=== PATIENT | male | born 1995 | race Hispanic/Latino ===

== ENCOUNTER 2025-03-10 01:14 | Emergency (ER) | payer OTHER ==
[~2025-03-10] VITALS: Ht 175.3 cm; Wt 80.7 kg
[2025-03-10 01:15] VITALS: BP 123/82
[2025-03-10 01:22] VITALS: PULSE 82; RESP 16; TEMP 97.6; O2SAT 97
[2025-03-10] MEDS ORDERED: POLYOS OP (01:22)
--- NOTE | 2025-03-10 01:23 | ERN ---
General Chief Complaint: Eye Problems Stated Complaint: EYE INFECTION Time Seen by MD: 01:15 History of Present Illness Initial Comments Otherwise healthy 30-year-old male who presents for left eye redness beginning earlier tonight. He reports itching and pain in the left eye with redness. No contact lenses. No other symptoms. Allergies: Coded Allergies: No Known Drug Allergies (Unverified Allergy, Unknown, 03/10/25) Past Medical History Past Medical History: No Pertinent History Past Surgical History: None Surgical History Other: RIGHT HAND SURGRY REPAIR FOR BOXERS FX ROS Dictation CONSTITUTIONAL: No chills, no fever, no weakness, no diaphoresis, no malaise. HEAD/FACE: No signs of trauma. EENT: Left eye irritation and redness RESPIRATORY: No cough, no orthopnea, no SOB, no stridor, no wheezing. CARDIOVASCULAR: No chest pain, no edema, no palpitations, no syncope. GASTROINTESTINAL/ABDOMINAL: No abdominal pain, no constipation, no diarrhea, no nausea, no vomiting. GENITOURINARY: No abnormal discharge, no dysuria, no frequent urination, no hematuria. No complaints of pain in the genitals. MUSCULOSKELETAL: No back pain, no gout, no joint pain, no joint swelling, no muscle pain, no muscle stiffness, no neck pain. INTEGUMENTARY: No change in color, no change in hair/nails, no dryness, no lesion, no lumps, no rash. NEUROLOGICAL/PSYCH: No anxiety, not depressed, no emotional problem, no headache, no numbness, no pre-existing deficit, no history of seizures, no tremors, no weakness. HEMATOLOGIC/LYMPHATIC: Not anemic, no history of blood clots, no apparent bleeding, no bruising, glands not swollen. All Systems Negative, Except as Noted. Physical Exam Physical Exam Dictation VITAL SIGNS: Reviewed. GENERAL APPEARANCE: Alert, oriented x3, no acute distress, obese. HEAD AND FACE: Non-traumatic. EYES: PERRL, eyelid no trauma, anterior chamber clear. Left eye conjunctivitis EARS: Pinnas intact and no signs of trauma or erythema. Ear canals clear and no discharge. TMs no erythema. NOSE: No discharge, no bleeding. OROPHARYNX: Mouth normal, teeth no caries, tongue pink. Pharynx clear, no erythema. Tonsils no exudates, no abscesses noted. Mucous membrane moist. NECK: Supple, non-tender, no thyromegaly, no masses, no JVD, no bruits. BREAST: Deferred. CHEST: No tenderness, no crepitus, no paradoxical movement, no retractions. LUNGS: Clear, well-ventilated, symmetric, no rales, no wheezing, no rhonchi, no stridor, good breath sounds bilaterally. HEART: Regular rate, regular rhythm, no murmur, no gallops. VASCULAR: No peripheral edema. ABDOMEN: Soft, positive bowel sounds, nondistended, no guarding, nontender, no rebound, no masses no hepatomegaly, no splenomegaly, no Prajapati's sign, no hernias. RECTAL: Deferred. GENITAL: Deferred. NEUROLOGICAL: Normal speech, gross motor function intact, gross sensory function intact. MUSCULOSKELETAL: Neck nontender, full range of motion, back nontender, full range of motion. EXTREMITIES: Nontender, full range of motion. SKIN: Color pink, dry, no turgor, no rash, no lacerations, no abrasions, no contusions. LYMPHATICS: Deferred. MDM CC: Tropic left eye Historian: Patient Comorbidities: None Limitations by social determinants: None Differential diagnosis: Viral versus bacterial conjunctivitis Vital signs are stable Clinical exam shows conjunctivitis, no concerns for any sort of deep infection or other life threat. We will discharge with Polytrim drops recommend PCP follow up as needed. ED Course Vital Signs Date Time Temp Pulse Resp B/P (MAP) Pulse Ox O2 Delivery O2 Flow Rate FiO2 03/10/25 01:15 97.5 54 16 123/82 97 Room Air 0 DX & DISP Disposition: Discharge Departure Impression: Primary Impression: Conjunctivitis, left eye Condition: Stable Scripts Polymyxin B Sulfate/Tmp (Polytrim Ophth Soln) 10,000 Unit-1 Mg/Ml Opsol 1 DROP OP TID for 7 Days, #10 ML 0 Refills Prov: LYNNETTE JONES DO 03/10/25 Additional Instructions: You have conjunctivitis. I have prescribed eyedrops. Use as prescribed. Conjunctivitis is often contagious. Wash your hands frequently. It may spread to your other eye. Please follow up with your primary doctor or an hospice case manager. LYNNETTE JOENS DO March 10, 2025 01:23
--- NOTE | 2025-03-10 01:36 | NUR ---
PT REFUSED BEDDING, STATES CO PAY IS 500 DOLLARS. DOES NOT WANT TO BE SEEN
== END 2025-03-10 01:37 | disposition left against medical advice (07) ==
LOC: EDH 01:14
DX: H10.9 Unspecified conjunctivitis (principal)
CPT/HCPCS: 99283